=== PATIENT | male | born 1945 | race Caucasian/White ===

== ENCOUNTER 2019-03-03 18:09 | Inpatient (IN) | payer MEDICARE ==
[2019-03-03 19:32] LABS: Basophils % (A) 1 %; Eosinophils # (A) 0.1 k/uL (0-0.7); Eosinophils % (A) 2 %; HCT 46.1 % (39.0-53.0); HGB 15.3 gm/dL (13.0-17.5); Lymphocytes # (A) 2.3 k/uL (1.0-4.8); Lymphocytes % (A) 32 %; MCH 31.4 pg (25.0-35.0); MCHC 33.3 g/dL (31.0-37.0); MCV 94.3 fL (80.0-100.0); Mean Platelet Volume 14.1; Monocytes # (A) 0.4 k/uL (0-1.0); Monocytes % (A) 6 %; Neutrophils # (A) 4.2 k/uL (1.3-7.7); Neutrophils % (A) 57 %; RBC 4.89 m/uL (4.30-5.90); RDW 14.3 % (11.5-15.5); WBC 7.4 k/uL (3.8-10.6)
[2019-03-03 19:39] LABS: Calcium 9.3 mg/dL (8.4-10.2); Potassium 4.3 mmol/L (3.5-5.1)
[2019-03-03 19:40] LABS: INR 0.9 (<1.2); Partial Thromboplastin Time 22.3 sec (22.0-30.0); Prothrombin Time 9.7 sec (9.0-12.0)
[2019-03-03 20:08] LABS: Platelet Count 10 k/uL (150-450)
[2019-03-03] MEDS ORDERED: DEXAMETHASONE 4 MG TAB PO ONE (21:06)
[2019-03-03] MEDS ORDERED: NALOXONE 0.4 MG/ML 1 ML VIAL IV PRN (21:08)
--- NOTE | 2019-03-03 21:08 | ED ---
General Adult HPI - General Chief complaint: Recheck/Abnormal Lab/Rx Stated complaint: abnormal labs Time Seen by Provider: 03/03/19 18:25 Source: patient, family Mode of arrival: ambulatory Limitations: no limitations - History of Present Illness Initial comments: The patient is a 73-year-old male who presents to the emergency department with complaint of abnormal labs. The patient had laboratory studies drawn drawn prior to a scheduled nephrology appointment. It consisted of routine blood work. The patient admits that he was at home today when he got a call stating that he had an abnormal platelet count and that he had to present to the emerg ency department for further evaluation. He denies a history of previous platelet disorder. He denies any abnormal bruising or bleeding. He has required transfusion of packed red blood cells when he had an episode of acute renal failure. States that his renal failure episodes are tied to ALLERGIC reactions. States he has had to receive dialysis before temporarily however his kidney function has essentially normalized at this point. He denies a history of anemia. No recent blood loss. He does admit he has been taking aspirin lately he has a recent dental procedure. He did take aspirin 4 times in one day and twice the following day. He denies any additional symptoms to include headaches, chest pain, shortness of breath, abdominal pain. No hemoptysis, hematemesis, melanotic stools or hematochezia. He does have bruising noted to the dorsal aspects of his hands which has been present for over a week. There are no alleviating, precipitating or modifying factors - Related Data Home Medications Medication Instructions Recorded Confirmed Latanoprost 1 drop BOTH EYES HS 04/01/14 03/03/19 Aspirin 81 mg PO HS 06/01/16 03/03/19 Brimonidine Tartrate [Alphagan P 1 drops BOTH EYES BID 06/01/16 03/03/19 0.15% Ophth Soln] Ferrous Sulfate [Iron (65 MG 325 mg PO BID 06/01/16 03/03/19 Elemental)] Ergocalciferol (Vitamin D2) 50,000 unit PO Q28D 03/03/19 03/03/19 [Drisdol] Furosemide [Lasix] 20 mg PO BID 03/03/19 03/03/19 Potassium Chloride ER [K-Dur 20] 20 meq PO DAILY 03/03/19 03/03/19 predniSONE 5 mg PO DAILY 03/03/19 03/03/19 Previous Rx's Medication Instructions Recorded Famotidine [Pepcid] 20 mg PO DAILY #30 tab 06/14/16 Allergies Allergy/AdvReac Type Severity Reaction Status Date / Time ARTIFICIAL POPCORN BUTTER Allergy Severe Dyspnea Uncoded 03/03/19 19:31 Sb [place] Popcorn Allergy Severe Dyspnea Uncoded 06/01/16 07:49 Butter Review of Systems ROS Statement: Those systems with pertinent positive or pertinent negative responses have been documented in the HPI. ROS Other: All systems not noted in ROS Statement are negative. Past Medical History Past Medical History: CVA/TIA, Dialysis, Eye Disorder, Hyperlipidemia, Hypertension, Osteoarthritis (OA), Pneumonia, Renal Disease Additional Past Medical History / Comment(s): Pt states he was in [place] 05/23/16 and petted a fish in an aquarium and immediately started with R hand swelling then L hand swelling and then more generalized edema. Other past hs: Dialysis in March 2014- hospitalized for swelling in legs and low urine output- acute kidney injury r/t allery per pt, TIA 2013, pt states he is not HTN- medication is protect kidneys, bilateral glaucoma, migraines in past, slight numbness L foot, OA low back and bilateral knees, bone spurs low back, sinus problems, scarlet fever at age 2yrs. History of Any Multi-Drug Resistant Organisms: None Reported Past Surgical History: Heart Catheterization, Hernia Repair Additional Past Surgical History / Comment(s): Dialysis catheters x3- groin twice then chest-removed April 2014. Kidney biopsy April 2014-neg. Kidney biopsy 06/30/14 for followup-neg. 1997 cardiac cath-clear, 1973 L inguinal hernia repair. Past Anesthesia/Blood Transfusion Reactions: No Reported Reaction Additional Past Anesthesia/Blood Transfusion Reaction / Comment(s): Pt staes he has received blood in past without reaction Past Psychological History: No Psychological Hx Reported Smoking Status: Never smoker Past Alcohol Use History: Rare Past Drug Use History: None Reported - Past Family History Mother Family Medical History: No Reported History Additional Family Medical History / Comment(s): Mother was healthy-she at age 92 1/2. Father Family Medical History: Renal Disease General Exam Limitations: no limitations General appearance: alert, in no apparent distress Head exam: Present: atraumatic, normocephalic, normal inspection Eye exam: Present: normal appearance, PERRL, EOMI. Absent: scleral icterus, conjunctival injection, periorbital swelling ENT exam: Present: normal exam, mucous membranes moist Neck exam: Present: normal inspection. Absent: tenderness, meningismus, lymphadenopathy Respiratory exam: Present: normal lung sounds bilaterally. Absent: respiratory distress, wheezes, rales, rhonchi, stridor Cardiovascular Exam: Present: regular rate, normal rhythm, normal heart sounds. Absent: systolic murmur, diastolic murmur, rubs, gallop, clicks GI/Abdominal exam: Present: soft, normal bowel sounds. Absent: distended, tenderness, guarding, rebound, rigid Extremities exam: Present: normal inspection, full ROM, normal capillary refill. Absent: tenderness, pedal edema, joint swelling, calf tenderness Back exam: Present: normal inspection Neurological exam: Present: alert, oriented X3, CN II-XII intact Psychiatric exam: Present: normal affect, normal mood Skin exam: Present: warm, dry, intact, normal color, other (The patient does have ecchymosis noted to his bilateral dorsal hands). Absent: rash Course Vital Signs 03/03/19 03/03/19 03/03/19 18:14 22:03 22:37 Temperature 97.9 F 97.9 F 97.9 F Pulse Rate 79 58 L 69 Respiratory 18 16 16 Rate Blood Pressure 165/101 155/70 147/90 O2 Sat by Pulse 97 97 97 Oximetry Medical Decision Making - Medical Decision Making The patient was placed into room 1. I did repeat his laboratory studies. The patient does have a platelet count of 10. He has no active bleeding at this time. Because of this I did recommend treatment with Decadron. He was given 40 mg of Decadron by mouth. I did call and discuss the case with Dr. Carbone. He did accept admission for the patient for further monitoring and further evaluation of his isolated thrombocytopenia. Bridging orders were placed. The patient remained in stable condition and was transported to the floor - Differential Diagnosis ITP, TTP, acute thrombocytopenia - Lab Data Result diagrams: 03/03/19 19:15 03/03/19 19:15 Lab Results 03/03/19 03/03/19 03/03/19 Range/Units 19:15 19:15 19:15 WBC 7.4 (3.8-10.6) k/uL RBC 4.89 (4.30-5.90) m/uL Hgb 15.3 (13.0-17.5) gm/dL Hct 46.1 (39.0-53.0) % MCV 94.3 (80.0-100.0) fL MCH 31.4 (25.0-35.0) pg MCHC 33.3 (31.0-37.0) g/dL RDW 14.3 (11.5-15.5) % Plt Count 10 L* (150-450) k/uL Neutrophils % 57 % Lymphocytes % 32 % Monocytes % 6 % Eosinophils % 2 % Basophils % 1 % Neutrophils # 4.2 (1.3-7.7) k/uL Lymphocytes # 2.3 (1.0-4.8) k/uL Monocytes # 0.4 (0-1.0) k/uL Eosinophils # 0.1 (0-0.7) k/uL Basophils # 0.0 (0-0.2) k/uL Manual Slide Review Performed RBC Morphology Normal PT 9.7 (9.0-12.0) sec INR 0.9 (<1.2) APTT 22.3 (22.0-30.0) sec Sodium 139 (137-145) mmol/L Potassium 4.3 (3.5-5.1) mmol/L Chloride 104 (98-107) mmol/L Carbon Dioxide 27 (22-30) mmol/L Anion Gap 8 mmol/L BUN 17 (9-20) mg/dL Creatinine 1.02 (0.66-1.25) mg/dL Est GFR (CKD-EPI)AfAm 83 (>60 ml/min/1.73 sqM) Est GFR (CKD-EPI)NonAf 72 (>60 ml/min/1.73 sqM) Glucose 151 H (74-99) mg/dL Calcium 9.3 (8.4-10.2) mg/dL Disposition Clinical Impression: Thrombocytopenia Disposition: ADMITTED IP TO THIS [facility] Condition: Stable Is patient prescribed a controlled substance at d/c from ED?: No Decision to Admit Reason: Admit from EC Decision Date: 03/03/19 Decision Time: 21:08
[2019-03-03 23:00] VITALS: BMI 29.0
--- NOTE | 2019-03-03 23:46 | P.HPIM ---
History of Present Illness H&P Date: 03/03/19 Chief Complaint: abnormal lab, thrombocytopenia 73 year old male with CKD III Patient is at baseline status of health, he had some blood work done last week received results today his doctor told him that his platelet count was 10,009 that was critical for which he recommended that he goes to the hospital. Patient denies any active source of bleeding he reports chronic easy bruisability. Denies any recent falls. He reports recently had some deep scaling and dental cleaning for which she was taking extra doses of aspirin as he was trying to avoid any other NSAIDs due to history of chronic kidney disease which is overall improving. He noticed some gum bleeding due to the procedure. Otherwise denies any nosebleeds denies any other active bleeds. Patient denies any chest pain or trouble breathing denies any fevers or chills denies any GI bleeding.patient denies any recent viral prodrome or respiratory illness. In the ED labs were confirmed repeat testing showed low count of 10,000 platelets. 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 Chronic maintenance low-dose prednisone for his chronic kidney disease. He is on Lasix and potassium and Pepcid. Review of Systems Pertinent positives as noted in HPI. All other systems were reviewed and are negative Past Medical History Past Medical History: CVA/TIA, Dialysis, Eye Disorder, Hyperlipidemia, Hypertension, Osteoarthritis (OA), Pneumonia, Renal Disease Additional Past Medical History / Comment(s): Pt states he was in [place] 05/23/16 and petted a fish in an aquarium and immediately started with R hand swelling then L hand swelling and then more generalized edema. Other past hs: Dialysis in March 2014- hospitalized for swelling in legs and low urine output- acute kidney injury r/t allery per pt, TIA 2013, pt states he is not HTN-m edication is protect kidneys, bilateral glaucoma, migraines in past, slight numbness L foot, OA low back and bilateral knees, bone spurs low back, sinus problems, scarlet fever at age 2yrs. History of Any Multi-Drug Resistant Organisms: None Reported Past Surgical History: Heart Catheterization, Hernia Repair Additional Past Surgical History / Comment(s): Dialysis catheters x3- groin twice then chest-removed April 2014. Kidney biopsy April 2014-neg. Kidney biopsy 06/30/14 for followup-neg. 1998 cardiac cath-clear, 1973 L inguinal hernia repair. Past Anesthesia/Blood Transfusion Reactions: No Reported Reaction Additional Past Anesthesia/Blood Transfusion Reaction / Comment(s): Pt staes he has received blood in past without reaction Past Psychological History: No Psychological Hx Reported Additional Psychological History / Comment(s): Pt resides with his spouse. He uses no assistive device. He drives. He is active. Smoking Status: Never smoker Past Alcohol Use History: Rare Past Drug Use History: None Reported - Past Family History Mother Family Medical History: No Reported History Additional Family Medical History / Comment(s): Mother was healthy-she at age 92 1. Father Family Medical History: Renal Disease Medications and Allergies Home Medications Medication Instructions Recorded Confirmed Type Latanoprost 1 drop BOTH EYES HS 04/01/14 03/03/19 History Aspirin 81 mg PO HS 06/01/16 03/03/19 History Brimonidine Tartrate [Alphagan P 1 drops BOTH EYES BID 06/01/16 03/03/19 History 0.15% Ophth Soln] Ferrous Sulfate [Iron (65 MG 325 mg PO BID 06/01/16 03/03/19 History Elemental)] Famotidine [Pepcid] 20 mg PO DAILY #30 tab 06/14/16 03/03/19 Rx Ergocalciferol (Vitamin D2) 50,000 unit PO Q28D 03/03/19 03/03/19 History [Drisdol] Furosemide [Lasix] 20 mg PO BID 03/03/19 03/03/19 History Potassium Chloride ER [K-Dur 20] 20 meq PO DAILY 03/03/19 03/03/19 History predniSONE 5 mg PO DAILY 03/03/19 03/03/19 History Allergies Allergy/AdvReac Type Severity Reaction Status Date / Time ARTIFICIAL POPCORN BUTTER Allergy Severe Dyspnea Uncoded 03/03/19 19:31 Sb [place] Popcorn Allergy Severe Dyspnea Uncoded 06/01/16 07:49 Butter Physical Exam Vitals: Vital Signs Temp Pulse Resp BP Pulse Ox 03/03/19 22:37 97.9 F 69 16 147/90 97 03/03/19 22:03 97.9 F 58 L 16 155/70 97 03/03/19 18:14 97.9 F 79 18 165/101 97 Intake and Output 03/03/19 03/03/19 03/04/19 14:59 22:59 06:59 Other: Weight 99.79 kg Constitutional: No acute distress, conversant, pleasant Eyes: Anicteric sclerae, moist conjunctiva, no lid-lag Pupils equal round reactive to light ENMT: NC/AT Oropharynx clear, no erythema, exudates Neck: Supple, FROM, no masses, or JVD No carotid bruits No thyromegaly Lungs: Clear to auscultation Clear to percussion Normal respiratory effort, no accessory muscle use Cardiovascular: Heart regular in rate and rhythm, No murmurs, gallops, or rubs peripheral edema right leg more than left Abdominal: Soft Nontender, no guarding, rebound or rigidity Abdomen moving with respiration Normoactive bowel sounds No hepatomegaly, No splenomegaly No palpable mass No abdominal wall hernia noted Skin: bruising of bilateral dorsum of the hand,, No swelling no tenderness Normal temperature, tone, texture, turgor No induration No subcutaneous nodules No rash, lesions No ulcers Extremities: No digital cyanosis No clubbing Pedal pulses intact and symmetrical Radial pulses intact and symmetrical No calf tenderness Psychiatric: Alert and oriented to person, place and time Appropriate affect fair judgment Neuro Muscles Strength 5/5 in all 4 extremities Sensation to light touch grossly present throughout Cranial nerves II-XII grossly intact No focal sensory deficits Lymphatics: no palpable cervical or supraclavicular , or inguinal lymph nodes Results CBC & Chem 7: 03/03/19 19:15 03/03/19 19:15 Labs: Abnormal Lab Results - Last 24 Hours (Table) 03/03/19 03/03/19 Range/Units 19:15 19:15 Plt Count 10 L* (150-450) k/uL Glucose 151 H (74-99) mg/dL Thrombosis Risk Factor Assmnt - Choose All That Apply Any of the Below Risk Factors Present?: Yes Each Factor Represents 1 point: Obesity (BMI >25) Each Risk Factor Represents 3 Points: Age 75 years or older Thrombosis Risk Factor Assessment Total Risk Factor Score: 4 Thrombosis Risk Factor Assessment Level: Moderate Risk Assessment and Plan Assessment: 73-year-old male with history of COPD stage III.admitted under observation with anticipated length of stay less than 48 hours due to severe thrombocytopenia with no evidence of bleeding. patient denies any active bleeding or recent history of bleeding, except for slight bleeding during a dental procedure for deep scaling recently. Patient was given high-dose Decadron, hematology was consult for their input. Plan: severe thrombocytopenia, no associated bleeding possible ITP, patient will be given short course of high dose decadron PO 40 mg daily for 4 days monitor for any signs of bleeding hematology consult r/o hepatitis r/o HIV check abd US for hypersplenism , no palpable spleen on exam insulin sliding scale due to high dose steroids PT/PTT / INR , unremarkable chronic condition currently stable CKD III DVT PPX SCDs, due to severe thrombocytopenia Surrogate decision-maker: patient CODE STATUS:full code Discussed with: Patient, ER, RN Anticipated discharge: <[address]: home A total of 65 minutes was spent on the care of this complex patient more than 50% of the time was spent in counseling and care coordination.
[2019-03-04 07:30] LABS: Glucose,Whole Blood 237 mg/dL (75-99)
[2019-03-04] MEDS: INSULIN ASPART (NovoLOG) 100 UNIT/ML VIAL SQ SCH ×4 (07:39→21:22)
[2019-03-04] MEDS: POTASSIUM CHLORIDE ER 20 MEQ TAB.ER PO SCH (07:40)
[2019-03-04] MEDS: FUROSEMIDE 20 MG TAB PO SCH ×2 (07:40→20:12)
[2019-03-04] MEDS: FAMOTIDINE 20 MG TAB PO SCH (07:40)
[2019-03-04] MEDS: BRIMONIDINE TARTRATE 0.2% DROPS 5 ML BTL BOTH EYES SCH ×2 (07:40→20:12)
--- NOTE | 2019-03-04 08:11 | US ---
EXAMINATION TYPE: US abdomen limited DATE OF EXAM: 03/04/2019 COMPARISON: CLINICAL HISTORY: r/o hypersplenism. Patient states having extremely low platelets EXAM MEASUREMENTS: Spleen: 11.9 cm Left Kidney: 11.6 x 4.6 x 5.5 cm 1. Spleen: echogenic focus with shadow seen at hilum - 1.2 cm 2. Left Kidney: wnl IMPRESSION: No evidence for splenomegaly. Echogenic focus seen at the devi may reflect a granuloma.
[2019-03-04] MEDS ORDERED: DEXAMETHASONE 4 MG TAB PO SCH (09:00)
[2019-03-04 10:07] LABS: Basophils % (A) 0 %; Eosinophils % (A) 0 %; HCT 47.7 % (39.0-53.0); HGB 15.4 gm/dL (13.0-17.5); Lymphocytes # (A) 1.1 k/uL (1.0-4.8); Lymphocytes % (A) 14 %; MCH 31.2 pg (25.0-35.0); MCHC 32.3 g/dL (31.0-37.0); MCV 96.5 fL (80.0-100.0); Mean Platelet Volume 11.5; Monocytes # (A) 0.2 k/uL (0-1.0); Monocytes % (A) 2 %; Neutrophils # (A) 6.6 k/uL (1.3-7.7); Neutrophils % (A) 83 %; RBC 4.94 m/uL (4.30-5.90); RDW 13.4 % (11.5-15.5)
[2019-03-04 10:12] LABS: Platelet Count 13 k/uL (150-450)
[2019-03-04 10:26] LABS: Albumin 4.5 g/dL (3.5-5.0); Calcium 9.6 mg/dL (8.4-10.2); Potassium 4.5 mmol/L (3.5-5.1); Total Bilirubin 0.6 mg/dL (0.2-1.3); Total Protein 7.3 g/dL (6.3-8.2)
[2019-03-04 11:11] LABS: Large Platelets Present
[2019-03-04 12:07] LABS: Glucose,Whole Blood 272 mg/dL (75-99)
[2019-03-04] MEDS: methylPREDNISolone SOD SUCCI 125 MG/2 ML VIAL IV SCH ×3 (12:35→23:40)
--- NOTE | 2019-03-04 15:53 | P.PN ---
Subjective Progress Note Date: 03/04/19 Principal diagnosis: thrombocytopenia Patient is a 73-year-old male of Dr. boogie who presented to the ER at the direction of Dr. Cross secondary to thrombocytopenia. He has a history of chronic kidney disease stage III and follows with Dr. Isabel, prior CVA, dyslipidemia, and hypertension. In the ER he underwent an extensive evaluation was found have platelet count of 10. He was subsequently admitted for further monitoring and started on steroids. Oncology/hematology has been consulted. Patient seen and examined at bedside. He reports that he had a rash starting on both of his legs approximately 3 weeks ago. He states the rash was worse and is now getting better. He denies any bleeding in his urine, bleeding in his stool, or coughing up blood. He was having significant bleeding from his gum line. 2 weeks ago he started having dental work done as he was waking up with blood on his pillowcase. He has chronic headaches but has not had any changes in his headaches. He has not had any focal neuro deficits. Objective - Vital Signs Vital signs: Vital Signs Temp 98.4 F 03/04/19 13:36 Pulse 103 H 03/04/19 13:36 Resp 20 03/04/19 13:36 BP 127/74 03/04/19 13:36 Pulse Ox 93 L 03/04/19 13:36 Intake & Output 03/03/19 03/04/19 03/04/19 18:59 06:59 18:59 Intake Total 600 Balance 600 Weight 99.79 kg Intake: Oral 600 Other: # Voids 2 4 - Exam General: non toxic, no distress, appears at stated age Derm: Petechiae bilateral lower extremity, chest and abdomen, and back, no bleeding noted, ecchymoses bilateral hands warm, dry Head: atraumatic, normocephalic, symmetric Eyes: EOMI, no lid lag, anicteric sclera Mouth: no lip lesion, mucus membranes moist Cardiovascular: S1S2 reg, no murmur, positive posterior tibial pulse bilateral, Lungs: CTA bilateral, no rhonchi, no rales , no accessory muscle use Abdominal: soft, nontender to palpation, no guarding, no appreciable organomegaly Ext: no gross muscle atrophy, no edema, no contractures Neuro: CN II-XI grossly intact, no focal neuro deficits Psych: Alert, oriented, appropriate affect - Labs CBC & Chem 7: 03/04/19 09:24 03/04/19 09:24 Labs: Abnormal Lab Results - Last 24 Hours (Table) 03/03/19 03/03/19 03/04/19 Range/Units 19:15 19:15 07:02 Plt Count 10 L* (150-450) k/uL Carbon Dioxide (22-30) mmol/L BUN (9-20) mg/dL Glucose 151 H (74-99) mg/dL POC Glucose (mg/dL) 237 H (75-99) mg/dL 03/04/19 03/04/19 03/04/19 Range/Units 09:24 09:24 11:52 Plt Count 13 L* (150-450) k/uL Carbon Dioxide 20 L (22-30) mmol/L BUN 21 H (9-20) mg/dL Glucose 306 H (74-99) mg/dL POC Glucose (mg/dL) 272 H (75-99) mg/dL Assessment and Plan Assessment: Severe thrombocytopenia -Solu-Medrol -Patient is chronically on prednisone secondary to renal issues -Oncology recommendations appreciated -Work at this pending with MAIN, folate, vitamin B12, [place] and lambda, hepatitis serologies, HIV serologies, immunofixation, MMA, serum protein electr ophoresis, and rheumatoid factor. CKD stage II -Follow renal function closely -Follows with Dr. Isabel as outpatient -History of needing acute dialysis 2 Hyperglycemia -Likely secondary to steroid use -Check A1c -Sliding-scale insulin -Start Levemir 5 units Hypertension, controlled -Continue with Lasix -Follow blood pressures Dyslipidemia -Not chronically on any medications -Follow up with outpatient DVT prophylaxis: None Discussed with: Patient, spouse, oncology COMMUNITY OUTREACH COORDINATOR Anticipated discharge: 3-4 days once plt near [address]: home A total of 35 minutes was spent on the care of this complex patient more than 50% of the time was spent in counseling and care coordination.
[2019-03-04] MEDS: PANTOPRAZOLE 40 MG TABLET PO SCH (16:57)
[2019-03-04 17:13] LABS: Glucose,Whole Blood 284 mg/dL (75-99)
[2019-03-04 17:13] LABS: Hepatitis A Antibody IgM Non-Reactive (Non-Reactive); Hepatitis B Surface AB- Quant 3.5 mIU/mL; Hepatitis C IgG Antibody Non-Reactive (Non-Reactive)
[2019-03-04 18:16] LABS: HIV 1 AB Non-Reactive (Non-Reactive); HIV AB P24 Non-Reactive (Non-Reactive); HIV P24 AG Non-Reactive (Non-Reactive)
[2019-03-04] MEDS: LATANOPROST 0.005% OPHTH DROPS 2.5 ML BTL BOTH EYES SCH (20:12)
[2019-03-04 20:43] LABS: Glucose,Whole Blood 271 mg/dL (75-99)
--- NOTE | 2019-03-04 22:17 | P.CONS ---
History of Present Illness - Reason for Consult Consult date: 03/04/19 Thrombocytopenia Requesting physician: Gonzalez Dimas - Chief Complaint Low Platlet Count - History of Present Illness Mr. Donahue is a pleasant 73 year old man who has been relatively healthy over the years. Significant past medical history includes 2013 in which he required temporary hemodialysis following an allergic reaction to something he ate. After initiation of steroids his renal was able to recovery and able to be taken off diaylsis. In 2015, he was visiting an aquarium and had stuck his hand in a fish tank, which resulted in immediate inflammatory reaction, again requiring hemodiaylsis and inpatient medical care. Steroids initated at that time as well and his renal function was able to recover to a level at which dialysis was able to be discontinued. Today he presented after seeing his PCP and having regular bloodwork. His PCP called to inform him of his platlet count 10K, subsequently his cosmetic consultant also called him and advised him to go into emergency for further evaluation. The past few weeks leading up to this admission he had undergone dental procedures, invasive. No antibiotics were given. He did admit to gum bleeding significant during this procedure. He had noticed bruising on extremities and petechaie rash on BLE. On admission Steroids were iniatiated and hematology has been consulted for further evaluation. An Ultrasound of the ab domen did not show splenomegaly. He denies weight loss, night sweats, fevers or chills. No other B symptoms. Review of Systems A 14 point review of systems assessed and completed and all negative except HPI Past Medical History Past Medical History: CVA/TIA, Dialysis, Eye Disorder, Hyperlipidemia, Hypertension, Osteoarthritis (OA), Pneumonia, Renal Disease Additional Past Medical History / Comment(s): Pt states he was in [place] 05/23/16 and petted a fish in an aquarium and immediately started with R hand swelling then L hand swelling and then more generalized edema. Other past hs: Dialysis in March 2014- hospitalized for swelling in legs and low urine output- acute kidney injury r/t allery per pt, TIA 2013, pt states he is not HTN- medication is protect kidneys, bilateral glaucoma, migraines in past, slight numbness L foot, OA low back and bilateral knees, bone spurs low back, sinus problems, scarlet fever at age 2yrs. History of Any Multi-Drug Resistant Organisms: None Reported Past Surgical History: Heart Catheterization, Hernia Repair Additional Past Surgical History / Comment(s): Dialysis catheters x3- groin twice then chest-removed April 2014. Kidney biopsy April 2014-neg. Kidney biopsy 06/30/14 for followup-neg. 1997 cardiac cath-clear, 1973 L inguinal hernia repair. Past Anesthesia/Blood Transfusion Reactions: No Reported Reaction Additional Past Anesthesia/Blood Transfusion Reaction / Comm: Pt staes he has received blood in past without reaction Past Psychological History: No Psychological Hx Reported Smoking Status: Never smoker Past Alcohol Use History: Rare Past Drug Use History: None Reported - Past Family History Mother Family Medical History: No Reported History Additional Family Medical History / Comment(s): Mother was healthy-she at age 92 12. Father Family Medical History: Renal Disease Medications and Allergies Home Medications Medication Instructions Recorded Confirmed Type Latanoprost 1 drop BOTH EYES HS 04/01/14 03/03/19 History Aspirin 81 mg PO HS 06/01/16 03/03/19 History Brimonidine Tartrate [Alphagan P 1 drops BOTH EYES BID 06/01/16 03/03/19 History 0.15% Ophth Soln] Ferrous Sulfate [Iron (65 MG 325 mg PO BID 06/01/16 03/03/19 History Elemental)] Famotidine [Pepcid] 20 mg PO DAILY #30 tab 06/14/16 03/03/19 Rx Ergocalciferol (Vitamin D2) 50,000 unit PO Q28D 03/03/19 03/03/19 History [Drisdol] Furosemide [Lasix] 20 mg PO BID 03/03/19 03/03/19 History Potassium Chloride ER [K-Dur 20] 20 meq PO DAILY 03/03/19 03/03/19 History predniSONE 5 mg PO DAILY 03/03/19 03/03/19 History Allergies Allergy/AdvReac Type Severity Reaction Status Date / Time ARTIFICIAL POPCORN BUTTER Allergy Severe Dyspnea Uncoded 03/03/19 19:31 Sb Redenbacher Popcorn Allergy Severe Dyspnea Uncoded 06/01/16 07:49 Butter Physical Exam Vitals: Vital Signs Temp Pulse Pulse Resp BP BP Pulse Ox 03/04/19 21:07 97.9 F 87 18 136/76 93 L 03/04/19 13:36 98.4 F 103 H 20 127/74 93 L 03/04/19 11:21 96 135/70 03/04/19 04:50 97.9 F 78 16 168/92 94 L 03/03/19 23:30 98.1 F 72 16 151/83 95 03/03/19 22:37 97.9 F 69 16 147/90 97 03/03/19 22:03 97.9 F 58 L 16 155/70 97 Intake and Output 03/04/19 03/04/19 03/04/19 06:59 14:59 22:59 Intake Total 600 540 Balance 600 540 Intake: Oral 600 540 Other: # Voids 2 4 2 Gen: NAD, Head: NCNT Neck: Supple No cervical, supraclavicular, axillary adenopathy Lungs: CTA [place], no increased effort Heart: Rrr Abdomen: Obese, Soft, Non-Tender Extremities: Areas of ecyymosis and BLE PEtechaie noted Neuro: No sensory ot motor deficits Results CBC & Chem 7: 03/04/19 09:24 03/04/19 09:24 Labs: Abnormal Lab Results - Last 24 Hours (Table) 03/04/19 03/04/19 03/04/19 Range/Units 07:02 09:24 09:24 Plt Count 13 L* (150-450) k/uL Carbon Dioxide 20 L (22-30) mmol/L BUN 21 H (9-20) mg/dL Glucose 306 H (74-99) mg/dL POC Glucose (mg/dL) 237 H (75-99) mg/dL 03/04/19 03/04/19 03/04/19 Range/Units 11:52 16:44 20:38 Plt Count (150-450) k/uL Carbon Dioxide (22-30) mmol/L BUN (9-20) mg/dL Glucose (74-99) mg/dL POC Glucose (mg/dL) 272 H 284 H 271 H (75-99) mg/dL Venous US: report reviewed Assessment and Plan (1) Thrombocytopenia Current Visit: Yes Status: Acute Code(s): D69.6 - THROMBOCYTOPENIA, UNSPECI FIED SNOMED Code(s): 591865263 Plan: Thrombocytopenia: - Solumedrol and PPI initiated and will continue with close monitoring of platlets - Case has been discussed with nephrology as it appears he has had immune related inflammatory reactions in the past, requiring dialysis, which were able to resolve with steroids anti-inflammatory effects. - A full work-up has been ordered at this time for underlying inflammatory etiology - Patient and have been educated on ITP diagnosis, risks of bleeding, goals of treatment, potential side effects of treatment and expectations. - Will await work-up and monitor labs, possible need for IVIG - await am CBC Physician Attest: I have completed the full history and physical of this patient and developed the above impression and plan, I agree with above dictation, dictated as a scribe.
[2019-03-05] MEDS: methylPREDNISolone SOD SUCCI 125 MG/2 ML VIAL IV SCH ×4 (05:07→23:21)
[2019-03-05 07:21] LABS: Glucose,Whole Blood 199 mg/dL (75-99)
[2019-03-05] MEDS: FAMOTIDINE 20 MG TAB PO SCH (07:33)
[2019-03-05] MEDS: FUROSEMIDE 20 MG TAB PO SCH ×2 (07:33→20:32)
[2019-03-05] MEDS: POTASSIUM CHLORIDE ER 20 MEQ TAB.ER PO SCH (07:33)
[2019-03-05] MEDS: PANTOPRAZOLE 40 MG TABLET PO SCH ×2 (07:33→16:57)
[2019-03-05] MEDS: INSULIN ASPART (NovoLOG) 100 UNIT/ML VIAL SQ SCH ×4 (07:33→20:53)
[2019-03-05] MEDS: BRIMONIDINE TARTRATE 0.2% DROPS 5 ML BTL BOTH EYES SCH ×2 (07:34→20:31)
[2019-03-05 08:29] LABS: HCT 42.6 % (39.0-53.0); HGB 14.2 gm/dL (13.0-17.5); MCH 31.5 pg (25.0-35.0); MCHC 33.3 g/dL (31.0-37.0); MCV 94.6 fL (80.0-100.0); Mean Platelet Volume 12.6; RDW 14.1 % (11.5-15.5); WBC 15.3 k/uL (3.8-10.6)
[2019-03-05 08:30] LABS: Platelet Count 13 k/uL (150-450)
[2019-03-05 08:40] LABS: Calcium 9.1 mg/dL (8.4-10.2); Potassium 4.3 mmol/L (3.5-5.1)
[2019-03-05 11:58] LABS: Glucose,Whole Blood 232 mg/dL (75-99)
--- NOTE | 2019-03-05 15:29 | P.PN ---
Subjective Progress Note Date: 03/05/19 Principal diagnosis: thrombocytopenia Patient is a 73-year-old male of Dr. boogie who presented to the ER at the direction of Dr. Cross secondary to thrombocytopenia. He has a history of chronic kidney disease stage III and follows with Dr. Isabel, prior CVA, dyslipidemia, and hypertension. In the ER he underwent an extensive evaluation was found have platelet count of 10. He was subsequently admitted for further monitoring and started on steroids. 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 Patient seen and examined at bedside. No chest pain, SOB, nausea, vomiting, thinks rash is getting better. at bedside and all questions answered. Objective - Vital Signs Vital signs: Vital Signs Temp 97.4 F L 03/05/19 12:27 Pulse 60 03/05/19 12:27 Resp 16 03/05/19 12:27 BP 126/72 03/05/19 12:27 Pulse Ox 93 L 03/05/19 12:27 Intake & Output 03/04/19 03/05/19 03/05/19 18:59 06:59 18:59 Intake Total 1140 540 Balance 1140 540 Intake: Oral 1140 540 Other: # Voids 2 1 1 # Bowel Movements 1 - Exam General: non toxic, no distress, appears at stated age Derm: Petechiae bilateral lower extremity, chest and abdomen, and back, no bleeding noted, ecchymoses bilateral hands, warm, dry Head: atraumatic, normocephalic, symmetric Eyes: EOMI, no lid lag, anicteric sclera Mouth: no lip lesion, mucus membranes moist Cardiovascular: S1S2 reg, no murmur, positive posterior tibial pulse bilateral, Lungs: CTA bilateral, no rhonchi, no rales , no accessory muscle use Abdominal: soft, nontender to palpation, no guarding, no appreciable organomegaly Ext: no gross muscle atrophy, no edema, no contractures Neuro: CN II-XI grossly intact, no focal neuro deficits Psych: Alert, oriented, appropriate affect - Labs CBC & Chem 7: 03/05/19 07:48 03/05/19 07:48 Labs: Abnormal Lab Results - Last 24 Hours (Table) 03/04/19 03/04/19 03/05/19 Range/Units 16:44 20:38 07:17 WBC (3.8-10.6) k/uL Plt Count (150-450) k/uL BUN (9-20) mg/dL Glucose (74-99) mg/dL POC Glucose (mg/dL) 284 H 271 H 199 H (75-99) mg/dL 03/05/19 03/05/19 03/05/19 Range/Units 07:48 07:48 11:54 WBC 15.3 H (3.8-10.6) k/uL Plt Count 13 L* (150-450) k/uL BUN 26 H (9-20) mg/dL Glucose 221 H (74-99) mg/dL POC Glucose (mg/dL) 232 H (75-99) mg/dL Assessment and Plan Assessment: Severe thrombocytopenia -Solu-Medrol -Patient is chronically on prednisone secondary to renal issues -Oncology recommendations appreciated -Work at this pending with MANI, folate, vitamin B12, [place] and lambda, immunofixation, MMA, serum protein electrophoresis, and rheumatoid factor. -Hepatitis and HIV serologies negative CKD stage II -Follow renal function closely -Follows with Dr. Isabel as outpatient -History of needing acute dialysis 2 Hyperglycemia -Likely secondary to steroid use -A1C pending -Sliding-scale insulin -Levemir 5 units Hypertension, controlled -Continue with Lasix -Follow blood pressures Dyslipidemia -Not chronically on any medications -Follow up with outpatient DVT prophylaxis: None Discussed with: Patient, spouse, oncology SIMPLEX OPERATOR Anticipated discharge: 3-4 days once plt near [address]: home A total of 25 minutes was spent on the care of this complex patient more than 50% of the time was spent in counseling and care coordination.
[2019-03-05] MEDS ORDERED: MELATONIN 5 MG TABLET PO PRN (16:24)
[2019-03-05] MEDS ORDERED: ALPRAZolam 0.25 MG TAB PO PRN (16:24)
[2019-03-05 16:54] LABS: Glucose,Whole Blood 216 mg/dL (75-99)
--- NOTE | 2019-03-05 17:18 | P.PN ---
Subjective Progress Note Date: 03/05/19 Principal diagnosis: Immune thrombocytopenic purpura In follow-up today patient was resting, he denies any side effects related to steroids, no bleeding to report, denies any recent ALLERGIC reactions. Objective - Vital Signs Vital signs: Vital Signs Temp 97.4 F L 03/05/19 12:27 Pulse 60 03/05/19 12:27 Resp 16 03/05/19 12:27 BP 126/72 03/05/19 12:27 Pulse Ox 93 L 03/05/19 12:27 Intake & Output 03/04/19 03/05/19 03/05/19 18:59 06:59 18:59 Intake Total 1140 540 Balance 1140 540 Intake: Oral 1140 540 Other: # Voids 2 1 1 # Bowel Movements 1 - Constitutional Constitutional Comment(s): Flushed complexion, General appearance: Present: average body habitus, cooperative, no acute distress - EENT Eyes: Present: anicteric sclerae, EOMI ENT: Present: hearing grossly normal, normal oropharynx - Respiratory Respiratory: bilateral: CTA - Cardiovascular Rhythm: regular Heart sounds: normal: S1, S2 Abnormal Heart Sounds: Absent: systolic murmur, diastolic murmur, rub, S3 Gallop, S4 Gallop, click, other - Peripheral edema leg Peripheral Edema: bilateral: None - Gastrointestinal General gastrointestinal: Present: normal bowel sounds, soft - Integumentary Integumentary: Present: flushed - Neurologic Neurologic: Present: CNII-XII intact - Musculoskeletal Musculoskeletal: Present: strength equal bilaterally - Psychiatric Psychiatric: Present: A&O x's 3, appropriate affect, intact judgment & insight - Labs CBC & Chem 7: 03/05/19 07:48 03/05/19 07:48 Labs: Abnormal Lab Results - Last 24 Hours (Table) 03/04/19 03/04/19 03/05/19 Range/Units 16:44 20:38 07:17 WBC (3.8-10.6) k/uL Plt Count (150-450) k/uL BUN (9-20) mg/dL Glucose (74-99) mg/dL POC Glucose (mg/dL) 284 H 271 H 199 H (75-99) mg/dL 03/05/19 03/05/19 03/05/19 Range/Units 07:48 07:48 11:54 WBC 15.3 H (3.8-10.6) k/uL Plt Count 13 L* (150-450) k/uL BUN 26 H (9-20) mg/dL Glucose 221 H (74-99) mg/dL POC Glucose (mg/dL) 232 H (75-99) mg/dL 03/05/19 Range/Units 16:50 WBC (3.8-10.6) k/uL Plt Count (150-450) k/uL BUN (9-20) mg/dL Glucose (74-99) mg/dL POC Glucose (mg/dL) 216 H (75-99) mg/dL Assessment and Plan (1) Acute ITP Narrative/Plan: Patient has been started on intravenous steroids. His platelet count is 13,000 today. No evidence of bleeding, hemoglobin is stable. We reviewed diagnosis of immune-related thrombocytopenic purpura, also, reviewed treatment options. Steroids is the initial treatment choice but, patient developed ITP while on a low-dose of steroids. This is concerning for steroid taper in the future. At this time the plan is for the high-dose steroids as prescribed, with a taper. Plan is for patient to follow-up with Dr. Lewis in the outpatient setting and discuss treatment options so that they can be initiated prior to completion of a steroid taper. Patient verbalized understanding. Did confirm [facility] in [place] for patient's prescriptions. Autoimmune workup is pending. Will follow with patient in the a.m. CBC daily. No anticoagulants, aspirin, NSAIDs Current Visit: Yes Status: Acute Priority: High Code(s): D69.3 - IMMUNE THROMBOCYTOPENIC PURPURA SNOMED Code(s): 54424255
[2019-03-05 17:23] LABS: Protein, Total 5.9 g/dL (6.2-8.2); Rheumatoid Factor 7 IU/mL (0-15)
[2019-03-05 20:23] LABS: Glucose,Whole Blood 342 mg/dL (75-99)
[2019-03-05] MEDS: LATANOPROST 0.005% OPHTH DROPS 2.5 ML BTL BOTH EYES SCH (20:32)
[2019-03-05] MEDS ORDERED: INSULIN DETEMIR (LEVEMIR) 100 UNIT/ML SYR SQ SCH (21:00)
[2019-03-06] MEDS: methylPREDNISolone SOD SUCCI 125 MG/2 ML VIAL IV SCH ×4 (05:33→23:03)
[2019-03-06 07:12] LABS: Glucose,Whole Blood 254 mg/dL (75-99)
[2019-03-06] MEDS: FUROSEMIDE 20 MG TAB PO SCH ×2 (07:15→20:09)
[2019-03-06] MEDS: INSULIN ASPART (NovoLOG) 100 UNIT/ML VIAL SQ SCH ×4 (07:15→21:12)
[2019-03-06] MEDS: POTASSIUM CHLORIDE ER 20 MEQ TAB.ER PO SCH (07:15)
[2019-03-06] MEDS: PANTOPRAZOLE 40 MG TABLET PO SCH ×2 (07:15→17:12)
[2019-03-06] MEDS: FAMOTIDINE 20 MG TAB PO SCH (07:15)
[2019-03-06] MEDS: BRIMONIDINE TARTRATE 0.2% DROPS 5 ML BTL BOTH EYES SCH ×2 (07:16→20:09)
[2019-03-06 08:16] LABS: HCT 41.5 % (39.0-53.0); HGB 13.8 gm/dL (13.0-17.5); MCH 31.8 pg (25.0-35.0); MCHC 33.3 g/dL (31.0-37.0); MCV 95.7 fL (80.0-100.0); Mean Platelet Volume 12.4; RBC 4.34 m/uL (4.30-5.90); RDW 14.5 % (11.5-15.5); WBC 15.3 k/uL (3.8-10.6)
[2019-03-06 08:24] LABS: Platelet Count 9 k/uL (150-450)
[2019-03-06] MEDS ORDERED: IMMUNE GLOBULIN (GAMMAGARD) 1 GM/10 ML VIAL IV SCH (09:00)
[2019-03-06] MEDS ORDERED: IMMUNE GLOBULIN (GAMMAGARD) 10 GM in EMPTY BAG 1 BAG IV ONE ×4 (10:00→16:00)
[2019-03-06 11:48] LABS: Glucose,Whole Blood 262 mg/dL (75-99)
--- NOTE | 2019-03-06 14:41 | P.PN ---
Subjective Progress Note Date: 03/06/19 Patient was seen and examined at the bedside. He was in good spirits and denied any active complaints. He denied chest pain, fever, chills, or cough. He further abdominal pain, nausea, or vomiting. Objective - Vital Signs Vital signs: Vital Signs Temp 97.9 F 03/06/19 13:00 Pulse 72 03/06/19 13:00 Resp 16 03/06/19 13:00 BP 131/69 03/06/19 13:00 Pulse Ox 94 L 03/06/19 13:00 Intake & Output 03/05/19 03/06/19 03/06/19 18:59 06:59 18:59 Intake Total 540 830 120 Balance 540 830 120 Intake: Oral 540 830 120 Other: Voiding Method Toilet # Voids 1 1 2 # Bowel Movements 1 - Exam General: Non-toxic, in no acute distress, appears stated age, normal weight HEENT: NC/AT, anicteric sclerae, moist conjunctiva, no lid-lag, PERRLA Cardiovascular: S1/S2 wnl, no murmurs, rubs, or gallops Lungs: Clear to auscultation, normal respiratory effort, no accessory muscle use Abdominal: Soft, non-tender, non-distended, no guarding, rebound, or rigidity Skin: Warm, dry Extremities: No edema or contractures Psychiatric: Alert and oriented to person, place and time, appropriate affect Neuro: CN II-XII grossly intact, Strength 5/5 in all 4 extremities, Speech intact, Sensation to light touch grossly intact throughout - Labs CBC & Chem 7: 03/06/19 07:45 03/05/19 07:48 Labs: Abnormal Lab Results - Last 24 Hours (Table) 03/05/19 03/05/19 03/05/19 Range/Units 07:48 07:48 16:50 WBC (3.8-10.6) k/uL Plt Count (150-450) k/uL POC Glucose (mg/dL) 216 H (75-99) mg/dL Hemoglobin A1c 7.0 H (4.0-6.0) % Total Protein (PEP) 5.9 L (6.2-8.2) g/dL 03/05/19 03/06/19 03/06/19 Range/Units 20:16 06:57 07:45 WBC 15.3 H (3.8-10.6) k/uL Plt Count 9 L* (150-450) k/uL POC Glucose (mg/dL) 342 H 254 H (75-99) mg/dL Hemoglobin A1c (4.0-6.0) % Total Protein (PEP) (6.2-8.2) g/dL 03/06/19 Range/Units 11:41 WBC (3.8-10.6) k/uL Plt Count (150-450) k/uL POC Glucose (mg/dL) 262 H (75-99) mg/dL Hemoglobin A1c (4.0-6.0) % Total Protein (PEP) (6.2-8.2) g/dL Assessment and Plan Plan: Severe thrombocytopenia, suspected ITP -Hematology following, recommendations appreciated -Continue with Solu-Medrol -MAIN and RF wnl. Vit B12 levels low normal -Hepatitis and HIV panels negative -Light chains wnl CKD stage III -Monitor BMP, history of requiring hemodialysis twice after ALLERGIC reactions Newly diagnosed diabetes mellitus, A1c 7.0 this visit -We'll increase Levemir 10 units daily at bedtime -Continue with insulin sliding scale Hypertension -Continue with Lasix DVT//GI prophylaxis -IPCDs -No indication for GI prophylaxis Discussed with: Patient Anticipated discharge date: 03/08/[address]: Home A total of 30 minutes was spent on the care of this complex patient more than 5 0% of the time was spent in counseling and care coordination.
[2019-03-06 17:07] LABS: Glucose,Whole Blood 268 mg/dL (75-99)
[2019-03-06 17:08] LABS: Mean Platelet Volume 12.7
[2019-03-06 17:24] LABS: Platelet Count 17 k/uL (150-450)
[2019-03-06] MEDS: LATANOPROST 0.005% OPHTH DROPS 2.5 ML BTL BOTH EYES SCH (20:10)
--- NOTE | 2019-03-06 20:28 | P.PN ---
Subjective Progress Note Date: 03/06/19 The patient denies any new complaints. He is tolerating IV steroids well. He has not noted any new bruising, petechia or purpura. No history of any bleeding from the nose, mouth, or in the stool/urine Objective - Vital Signs Vital signs: Vital Signs Temp 97.9 F 03/06/19 13:00 Pulse 72 03/06/19 13:00 Resp 16 03/06/19 13:00 BP 131/69 03/06/19 13:00 Pulse Ox 94 L 03/06/19 13:00 Intake & Output 03/06/19 03/06/19 03/07/19 06:59 18:59 06:59 Intake Total 830 120 Balance 830 120 Intake: Oral 830 120 Other: Voiding Method Toilet # Voids 1 2 - Constitutional General appearance: Present: no acute distress - EENT Eyes: Present: EOMI ENT: Present: hearing grossly normal, normal oropharynx - Respiratory Respiratory: bilateral: CTA - Cardiovascular Rhythm: regular Heart sounds: normal: S1, S2 - Gastrointestinal General gastrointestinal: Present: normal bowel sounds, soft - Integumentary Integumentary Comment(s): No fresh ecchymosis noted. Petechial rash on bilateral lower extremities fading - Neurologic Neurologic: Present: CNII-XII intact - Musculoskeletal Musculoskeletal: Present: strength equal bilaterally - Psychiatric Psychiatric: Present: A&O x's 3, appropriate affect - Labs CBC & Chem 7: 03/06/19 16:31 03/05/19 07:48 Labs: Abnormal Lab Results - Last 24 Hours (Table) 03/05/19 03/06/19 03/06/19 Range/Units 20:16 06:57 07:45 WBC 15.3 H (3.8-10.6) k/uL Plt Count 9 L* (150-450) k/uL POC Glucose (mg/dL) 342 H 254 H (75-99) mg/dL 03/06/19 03/06/19 03/06/19 Range/Units 11:41 16:31 17:00 WBC (3.8-10.6) k/uL Plt Count 17 L* D (150-450) k/uL POC Glucose (mg/dL) 262 H 268 H (75-99) mg/dL Assessment and Plan (1) Acute ITP Narrative/Plan: The patient's PET counts have not shown a response so far to IV steroids. They are at 9 today. Fortunately does not have any evidence of increased bleeding. Continue IV steroids. As kidney function is normal, and IVIG. Workup for underlying causes so far is negative. Some tests are still pending. 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 The patient has not shown any evidence of a specific autoimmune syndromes so far. He will need to be monitored in the future for the same. It was discussed with the patient that his ITP occurred while he was still on steroids, albeit a low-dose. This somewhat increases the risk that response to steroids may not be optimal, especially when we try to taper him. This makes it more likely that he will require second line therapy. Given his prior history of autoimmune issues, rituximab would be a good option in that case. If platelet counts are stable above 10,000, the patient can be discharged on steroid taper. He will then be set up for outpatient follow-up with additional recommendations (such as second line therapy) to be made depending on his response. Current Visit: Yes Status: Acute Priority: High Code(s): D69.3 - IMMUNE THROMBOCYTOPENIC PURPURA SNOMED Code(s): 96922207 Plan: Defer to the admitting service and other consultants for management of his other medical problems
[2019-03-06 20:36] LABS: Glucose,Whole Blood 204 mg/dL (75-99)
[2019-03-06] MEDS: INSULIN DETEMIR (LEVEMIR) 100 UNIT/ML SYR SQ SCH (21:12)
[2019-03-07] MEDS: methylPREDNISolone SOD SUCCI 125 MG/2 ML VIAL IV SCH ×4 (05:38→23:35)
[2019-03-07] MEDS: POTASSIUM CHLORIDE ER 20 MEQ TAB.ER PO SCH (07:06)
[2019-03-07] MEDS: FUROSEMIDE 20 MG TAB PO SCH ×2 (07:06→21:23)
[2019-03-07] MEDS: BRIMONIDINE TARTRATE 0.2% DROPS 5 ML BTL BOTH EYES SCH ×2 (07:06→21:24)
[2019-03-07] MEDS: PANTOPRAZOLE 40 MG TABLET PO SCH ×2 (07:06→16:54)
[2019-03-07] MEDS: INSULIN ASPART (NovoLOG) 100 UNIT/ML VIAL SQ SCH ×4 (07:07→21:24)
[2019-03-07 07:16] LABS: Glucose,Whole Blood 157 mg/dL (75-99)
[2019-03-07 07:37] LABS: HCT 39.8 % (39.0-53.0); HGB 13.2 gm/dL (13.0-17.5); MCH 31.5 pg (25.0-35.0); MCV 95.3 fL (80.0-100.0); Mean Platelet Volume 12.5; RBC 4.18 m/uL (4.30-5.90); RDW 14.4 % (11.5-15.5); WBC 11.6 k/uL (3.8-10.6)
[2019-03-07 07:46] LABS: Platelet Count 10 k/uL (150-450)
[2019-03-07] MEDS ORDERED: IMMUNE GLOBULIN (GAMMAGARD) 10 GM in EMPTY BAG 1 BAG IV ONE ×2 (09:00→11:00)
[2019-03-07 11:51] LABS: Glucose,Whole Blood 202 mg/dL (75-99)
[2019-03-07] MEDS ORDERED: IMMUNE GLOBULIN (GAMMAGARD) 5 GM in EMPTY BAG 1 BAG IV ONE ×4 (13:00→16:00)
[2019-03-07 15:20] LABS: Albumin 3.63 g/dL (3.80-4.90); Gamma Globulin 0.84 g/dL (0.70-1.50)
[2019-03-07 17:10] LABS: Glucose,Whole Blood 236 mg/dL (75-99)
--- NOTE | 2019-03-07 17:10 | P.PN ---
Subjective Progress Note Date: 03/07/19 Principal diagnosis: Immune thrombocytopenic purpura In follow-up today patient sitting up in bed, denies bleeding, steroid side effects, does have an increased CBG and is wanting to see his incinerator attendant for blood glucose management while he is on steroids, the "rash" that was on his legs is significantly improved, no bleeding, tolerated IVIG infusions well. Objective - Vital Signs Vital signs: Vital Signs Temp 98.0 F 03/07/19 12:45 Pulse 60 03/07/19 12:45 Resp 16 03/07/19 15:51 BP 147/78 03/07/19 12:45 Pulse Ox 92 L 03/07/19 12:45 Intake & Output 03/06/19 03/07/19 03/07/19 18:59 06:59 18:59 Intake Total 120 Balance 120 Intake: Oral 120 Other: Voiding Method Toilet Toilet Toilet # Voids 2 2 4 - Exam Well-developed, well-nourished, male sitting up in bed, no acute distress, alert and oriented 4, is at bedside, petechial rashes noted on the shins of the bilateral lower extremities, some bruising to the forearms and the hands, no other petechial rashes noted, respirations even and unlabored, no swelling - Labs CBC & Chem 7: 03/07/19 06:35 03/05/19 07:48 Labs: Abnormal Lab Results - Last 24 Hours (Table) 03/05/19 03/06/19 03/06/19 Range/Units 07:48 16:31 17:00 WBC (3.8-10.6) k/uL RBC (4.30-5.90) m/uL Plt Count 17 L* D (150-450) k/uL POC Glucose (mg/dL) 268 H (75-99) mg/dL Albumin (PEP) 3.63 L (3.80-4.90) g/dL [id number] 0.57 L (0.60-1.00) g/dL 03/06/19 03/07/19 03/07/19 Range/Units 20:34 06:35 07:00 WBC 11.6 H (3.8-10.6) k/uL RBC 4.18 L (4.30-5.90) m/uL Plt Count 10 L* (150-450) k/uL POC Glucose (mg/dL) 204 H 157 H (75-99) mg/dL Albumin (PEP) (3.80-4.90) g/dL Rewai-3-Oylgeabqy (0.60-1.00) g/dL 03/07/19 Range/Units 11:33 WBC (3.8-10.6) k/uL RBC (4.30-5.90) m/uL Plt Count (150-450) k/uL POC Glucose (mg/dL) 202 H (75-99) mg/dL Albumin (PEP) (3.80-4.90) g/dL Kbzdg-2-Fnqnuutoi (0.60-1.00) g/dL Assessment and Plan (1) Acute ITP Narrative/Plan: Patient on high-dose intravenous steroids. He has received IVIG. His platelet count is 10,000 today. No evidence of bleeding, hemoglobin is stable. CBC daily. No anticoagulants, aspirin, NSAIDs Patient has seen Dr. Isabel in the past for his renal failure, she also managed his hyperglycemia secondary to steroids. Have consulted Dr. Isabel for manageme nt of the same as patient will be on high-dose tapering steroids. Current Visit: Yes Status: Acute Priority: High Code(s): D69.3 - IMMUNE THROMBOCYTOPENIC PURPURA SNOMED Code(s): 30032301
[2019-03-07 17:41] LABS: HCT 40.5 % (39.0-53.0); HGB 13.2 gm/dL (13.0-17.5); MCHC 32.6 g/dL (31.0-37.0); MCV 97.9 fL (80.0-100.0); Mean Platelet Volume 13.8; RBC 4.13 m/uL (4.30-5.90); RDW 13.7 % (11.5-15.5); WBC 12.2 k/uL (3.8-10.6)
[2019-03-07 17:56] LABS: Platelet Count 14 k/uL (150-450)
--- NOTE | 2019-03-07 18:54 | P.PN ---
Subjective Progress Note Date: 03/07/19 The patient was seen and examined at the bedside on 03/07/2019. He was in good spirits and denied any active complaints. He denied noticing any hematuria, epistaxis, hematochezia, hematemesis, melena, or bruising. Objective - Vital Signs Vital signs: Vital Signs Temp 98.0 F 03/07/19 12:45 Pulse 60 03/07/19 12:45 Resp 16 03/07/19 15:51 BP 147/78 03/07/19 12:45 Pulse Ox 92 L 03/07/19 12:45 Intake & Output 03/06/19 03/07/19 03/07/19 18:59 06:59 18:59 Intake Total 120 Balance 120 Intake: Oral 120 Other: Voiding Method Toilet Toilet Toilet # Voids 2 2 4 - Exam General: Non-toxic, in no acute distress, appears stated age, normal weight HEENT: NC/AT, anicteric sclerae, moist conjunctiva, no lid-lag, PERRLA Cardiovascular: S1/S2 wnl, no murmurs, rubs, or gallops Lungs: Clear to auscultation, normal respiratory effort, no accessory muscle use Abdominal: Soft, non-tender, non-distended, no guarding, rebound, or rigidity Skin: Warm, dry Extremities: No edema or contractures Psychiatric: Alert and oriented to person, place and time, appropriate affect Neuro: CN II-XII grossly intact, Strength 5/5 in all 4 extremities, Speech intact, Sensation to light touch grossly intact throughout - Labs CBC & Chem 7: 03/07/19 17:19 03/05/19 07:48 Labs: Abnormal Lab Results - Last 24 Hours (Table) 03/05/19 03/06/19 03/07/19 Range/Units 07:48 20:34 06:35 WBC 11.6 H (3.8-10.6) k/uL RBC 4.18 L (4.30-5.90) m/uL Plt Count 10 L* (150-450) k/uL POC Glucose (mg/dL) 204 H (75-99) mg/dL Albumin (PEP) 3.63 L (3.80-4.90) g/dL Hbvgt-1-Vgpuwybnb 0.57 L (0.60-1.00) g/dL 03/07/19 03/07/19 03/07/19 Range/Units 07:00 11:33 17:09 WBC (3.8-10.6) k/uL RBC (4.30-5.90) m/uL Plt Count (150-450) k/uL POC Glucose (mg/dL) 157 H 202 H 236 H (75-99) mg/dL Albumin (PEP) (3.80-4.90) g/dL Namjk-6-Wskktrxmh (0.60-1.00) g/dL 03/07/19 Range/Units 17:19 WBC 12.2 H (3.8-10.6) k/uL RBC 4.13 L (4.30-5.90) m/uL Plt Count 14 L* (150-450) k/uL POC Glucose (mg/dL) (75-99) mg/dL Albumin (PEP) (3.80-4.90) g/dL Gmqji-9-Iigkzfwve (0.60-1.00) g/dL Assessment and Plan Plan: Severe thrombocytopenia, suspected ITP -Hematology following, recommendations appreciated -Continue with Solu-Medrol. Patient to be discharged on high dose of taper steroids. -MAIN and RF wnl. Vit B12 levels low normal -Hepatitis and HIV panels negative -Light chains wnl CKD stage III -Monitor BMP, history of requiring hemodialysis twice after ALLERGIC reactions -Nephrology consulted Newly diagnosed diabetes mellitus, A1c 7.0 this visit -We'll increase Levemir 10 units daily at bedtime -Continue with insulin sliding scale Hypertension -Continue with Lasix DVT//GI prophylaxis -IPCDs -No indication for GI prophylaxis Discussed with: Patient Anticipated discharge date: 03/08/[address]: Home A total of 30 minutes was spent on the care of this complex patient more than 50% of the time was spent in counseling and care coordination.
[2019-03-07 20:49] LABS: Glucose,Whole Blood 236 mg/dL (75-99)
[2019-03-07] MEDS: LATANOPROST 0.005% OPHTH DROPS 2.5 ML BTL BOTH EYES SCH (21:23)
[2019-03-07] MEDS: INSULIN DETEMIR (LEVEMIR) 100 UNIT/ML SYR SQ SCH (21:24)
[2019-03-08] MEDS: methylPREDNISolone SOD SUCCI 125 MG/2 ML VIAL IV SCH ×2 (05:23→14:20)
[2019-03-08 07:10] LABS: Glucose,Whole Blood 171 mg/dL (75-99)
[2019-03-08 07:44] LABS: HGB 12.9 gm/dL (13.0-17.5); MCH 31.6 pg (25.0-35.0); MCV 95.7 fL (80.0-100.0); RBC 4.07 m/uL (4.30-5.90); RDW 14.3 % (11.5-15.5); WBC 9.6 k/uL (3.8-10.6)
[2019-03-08 07:51] LABS: Platelet Count 14 k/uL (150-450)
[2019-03-08] MEDS: INSULIN ASPART (NovoLOG) 100 UNIT/ML VIAL SQ SCH ×2 (08:54→14:20)
[2019-03-08] MEDS: PANTOPRAZOLE 40 MG TABLET PO SCH (08:54)
[2019-03-08] MEDS: FUROSEMIDE 20 MG TAB PO SCH (08:54)
[2019-03-08] MEDS: POTASSIUM CHLORIDE ER 20 MEQ TAB.ER PO SCH (08:54)
[2019-03-08] MEDS: BRIMONIDINE TARTRATE 0.2% DROPS 5 ML BTL BOTH EYES SCH (08:56)
[2019-03-08 12:38] LABS: Glucose,Whole Blood 213 mg/dL (75-99)
--- NOTE | 2019-03-08 13:56 | P.NPCON ---
History of Present Illness - Reason for Consult Consult date: 03/08/19 acute renal failure - Chief Complaint Refer to the hospital with low platelets. - History of Present Illness Known to Dr. Isabel for chronic kidney disease. He had history of ALLERGIC reactions.. His sodium was in 2013 when he developed severe proteinuria with acute interstitial nephritis from the butter of popcorn. He required dialysis for 2 months. He was treated with steroids and the biopsy showed AIN and FSGS. He recovered renal function and in May 2016 in [place] when he was putting a fish developed similar ALLERGIC reaction developed acute kidney injury requiring dialysis. He is off dialysis since July 2016. He was tapered to 1 mg of prednisone creatinine improved to 1.1 MG per DL. He came to the hospital with thrombocytopenia secondary to ITP. He was treated with steroids and IVIG. No renal function since hospitalization but on admission his creatinine was at baseline. No nausea vomiting diarrhea. No recent contrast studies. No foamy urine or lower extremity swelling. Review of Systems Constitutional: Reports as per HPI Past Medical History Past Medical History: CVA/TIA, Dialysis, Eye Disorder, Hyperlipidemia, Hypertension, Osteoarthritis (OA), Pneumonia, Renal Disease Additional Past Medical History / Comment(s): Pt states he was in [place] 05/23/16 and petted a fish in an aquarium and immediately started with R hand swelling then L hand swelling and then more generalized edema. Other past hs: Dialysis in March 2014- hospitalized for swelling in legs and low urine output- acute kidney injury r/t allery per pt, TIA 2013, pt states he is not HTN- medication is protect kidneys, bilateral glaucoma, migraines in past, slight numbness L foot, OA low back and bilateral knees, bone spurs low back, sinus problems, scarlet fever at age 2yrs. History of Any Multi-Drug Resistant Organisms: None Reported Past Surgical History: Heart Catheterization, Hernia Repair Additional Past Surgical History / Comment(s): Dialysis catheters x3- groin twice then chest-removed April 2014. Kidney biopsy April 2014-neg. Kidney biopsy 06/30/14 for followup-neg. 1997 cardiac cath-clear, 1973 L inguinal hernia repair. Past Anesthesia/Blood Transfusion Reactions: No Reported Reaction Additional Past Anesthesia/Blood Transfusion Reaction / Comment(s): Pt staes he has received blood in past without reaction Past Psychological History: No Psychological Hx Reported Smoking Status: Never smoker Past Alcohol Use History: Rare Past Drug Use History: None Reported - Past Family History Mother Family Medical History: No Reported History Additional Family Medical History / Comment(s): Mother was healthy-she at age 92 1/2. Father Family Medical History: Renal Disease Medications and Allergies Home Medications Medication Instructions Recorded Confirmed Type Latanoprost 1 drop BOTH EYES HS 04/01/14 03/03/19 History Aspirin 81 mg PO HS 06/01/16 03/03/19 History Brimonidine Tartrate [Alphagan P 1 drops BOTH EYES BID 06/01/16 03/03/19 History 0.15% Ophth Soln] Ferrous Sulfate [Iron (65 MG 325 mg PO BID 06/01/16 03/03/19 History Elemental)] Famotidine [Pepcid] 20 mg PO DAILY #30 tab 06/14/16 03/03/19 Rx Ergocalciferol (Vitamin D2) 50,000 unit PO Q28D 03/03/19 03/03/19 History [Drisdol] Furosemide [Lasix] 20 mg PO BID 03/03/19 03/03/19 History Potassium Chloride ER [K-Dur 20] 20 meq PO DAILY 03/03/19 03/03/19 History predniSONE 0 mg PO DIRECTED #126 tab 03/07/19 Rx Allergies Allergy/AdvReac Type Severity Reaction Status Date / Time ARTIFICIAL POPCORN BUTTER Allergy Severe Dyspnea Uncoded 03/03/19 19:31 Sb Redenbacher Popcorn Allergy Severe Dyspnea Uncoded 06/01/16 07:49 Butter Physical Exam Vitals: Vital Signs Temp Pulse Pulse Pulse Resp BP Pulse Ox 03/08/19 08:00 60 64 57 L 16 03/08/19 05:00 97.5 F L 57 L 16 132/67 91 L 03/07/19 21:00 98.1 F 60 120/68 92 L 03/07/19 15:51 16 Intake and Output 03/07/19 03/08/19 03/08/19 22:59 06:59 14:59 Intake Total 590 Balance 590 Intake: Oral 590 Other: Voiding Method Toilet Toilet # Voids 1 2 2 No acute distress S1-S2 heard Lungs clear Trace edema with petechiae Results - Lab Results Most recent lab results Calcium 9.1 mg/dL (8.4-10.2) 03/05/19 07:48 03/08/19 06:15 03/05/19 07:48 Assessment and Plan Assessment: #1 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 Currently creatinine at baseline at 1.0-1.1 MG per DL. 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 Creatinine was at baseline on admission. #2 stable from nephrology point of view for discharge to be followed up for Dr. Isabel as outpatient. #3 Glucotrol is marked the patient's preferred in the past. They can also take metformin based on the kidney function. But because of his ALLERGY reactions and comfortable UTI would leave him on Glucotrol. Stable from nephrology point of view for discharge. Thank you very much for this consultation
[2019-03-08 14:19] VITALS: BP 135/73; PULSE 64; RESP 18; TEMP 98.1
--- NOTE | 2019-03-08 16:47 | P.DS ---
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 Cross presented to the ER at the direction of Dr. Isabel secondary to thrombocytopenia. He has a history of chronic kidney disease stage III and follows with Dr. Isabel, prior CVA, dyslipidemia, and hypertension. In the ER he underwent an extensive evaluation was found have platelet count of 10. He was subsequently admitted for further monitoring and started on steroids. Oncology/hematology was consulted. Working diagnosis was ITP and patient remained on high dose steroids. He initially stated to have a response to IV steroids but this weaned. He was then started on IVIG. It was felt that steroids were less likely to be of benefit as he is chronically on low dose steroids. His platelets at 14. He had no signs of bleeding and his purpura were getting better. Hematology felt confident that he could be discharge if plt stable greater than 10. He was determined stable for discharge. He will start on a high dose prednisone at 1 mg/kg/day with a quick taper as determined appropriate on 03/07. He was also found to have A1C of 7 and was started on glucotrol as this has worked for him in the past. He will follow with Dr. Lewis on 03/19. He will have a repeat CBC in 5 days with results to Dr. Lewis. He will follow with Dr. Isabel in [address] Cross in 2-3 days. Patient seen and examined at bedside.No chest pain, SOB, nausea, vomiting, "rash" getting better Vital signs reviewed and stable. General: non toxic, no distress, appears at stated age Derm: Purpura decreasing on legs and abdomen, resolved on back, warm, dry Head: atraumatic, normocephalic, symmetric Eyes: EOMI, no lid lag, anicteric sclera Mouth: no lip lesion, mucus membranes moist Cardiovascular: S1S2 reg, no murmur, positive posterior tibial pulse bilateral, Lungs: CTA bilateral, no rhonchi, no rales , no accessory muscle use Abdominal: soft, nontender to palpation, no guarding, no appreciable organomegaly Ext: no gross muscle atrophy, no edema, no contractures Neuro: CN II-XI grossly intact, no focal neuro deficits Psych: Alert, oriented, appropriate affect A total of 45 minutes of time were spent preparing this complex discharge summary . Pertinent Studies: ABD ultrasound- no splenomegally, granuloma Patient Condition at Discharge: Stable Plan - Discharge Summary New Discharge Prescriptions: New glipiZIDE [Glucotrol] 5 mg PO AC-BID #60 tab predniSONE 0 mg PO DIRECTED #126 tab Continue Latanoprost 1 drop BOTH EYES HS Ferrous Sulfate [Iron (65 MG Elemental)] 325 mg PO BID Brimonidine Tartrate [Alphagan P 0.15% Ophth Soln] 1 drops BOTH EYES BID Aspirin 81 mg PO HS Famotidine [Pepcid] 20 mg PO DAILY #30 tab Ergocalciferol (Vitamin D2) [Drisdol] 50,000 unit PO Q28D Furosemide [Lasix] 20 mg PO BID Potassium Chloride ER [K-Dur 20] 20 meq PO DAILY Discontinued predniSONE 5 mg PO DAILY Discharge Medication List Latanoprost 1 drop BOTH EYES HS 04/01/14 [History] Aspirin 81 mg PO HS 06/01/16 [History] Brimonidine Tartrate [Alphagan P 0.15% Ophth Soln] 1 drops BOTH EYES BID 06/01/16 [History] Ferrous Sulfate [Iron (65 MG Elemental)] 325 mg PO BID 06/01/16 [History] Famotidine [Pepcid] 20 mg PO DAILY #30 tab 06/14/16 [Rx] Ergocalciferol (Vitamin D2) [Drisdol] 50,000 unit PO Q28D 03/03/19 [History] Furosemide [Lasix] 20 mg PO BID 03/03/19 [History] Potassium Chloride ER [K-Dur 20] 20 meq PO DAILY 03/03/19 [History] glipiZIDE [Glucotrol] 5 mg PO AC-BID #60 tab 03/08/19 [Rx] predniSONE 0 mg PO DIRECTED #126 tab 03/08/19 [Rx] Follow up Appointment(s)/Referral(s): Navin Lewis MD [STAFF PHYSICIAN] - 03/19/19 4:30 pm (attempt to reschedule sunday03/10/19 for an appointment within that week ) Zeynep Isabel MD [STAFF PHYSICIAN] - 2 Weeks Enzo Cross MD [Primary Care Provider] - 1-2 days Ambulatory/Diagnostic Orders: Complete Blood Count w/diff [LAB.AMB] Time Frame: 5 Days, Location: None Selected Patient Instructions/Handouts: Thrombocytopenia (DC) Activity/Diet/Wound Care/Special Instructions: heart healthy diet Activity as tolerated, no ladders, no using knives, no hunting, no contact sports Take blood sugar once daily either before breakfast or 2 hours after dinner. Discharge Disposition: HOME SELF-CARE
[2019-03-08] MEDS ORDERED: glipiZIDE 5 MG TAB PO SCH (17:30)
--- NOTE | 2019-03-09 00:47 | P.PN ---
Subjective Progress Note Date: 03/07/19 The pt denies any new s/s. No oral/nasal/rectal/ bleed noted. No new bruising. He is tolerating PO steroids well Objective - Vital Signs Vital signs: Vital Signs Temp 98.1 F 03/08/19 13:23 Pulse 64 03/08/19 13:23 Resp 18 03/08/19 13:23 BP 135/73 03/08/19 13:23 Pulse Ox 96 03/08/19 13:23 Intake & Output 03/08/19 03/08/19 03/09/19 06:59 18:59 06:59 Intake Total 590 Balance 590 Intake: Oral 590 Other: Voiding Method Toilet # Voids 2 2 - Constitutional General appearance: Present: no acute distress - EENT Eyes: Present: EOMI ENT: Present: hearing grossly normal, normal oropharynx - Respiratory Respiratory: bilateral: CTA - Cardiovascular Rhythm: regular Heart sounds: normal: S1, S2 - Gastrointestinal General gastrointestinal: Present: normal bowel sounds, soft - Integumentary Integumentary: Present: rash (petechial rash- mainly on LE, fading) - Musculoskeletal Musculoskeletal: Present: strength equal bilaterally - Psychiatric Psychiatric: Present: A&O x's 3, appropriate affect - Labs CBC & Chem 7: 03/08/19 06:15 03/05/19 07:48 Labs: Abnormal Lab Results - Last 24 Hours (Table) 03/08/19 03/08/19 03/08/19 Range/Units 06:15 07:08 12:36 RBC 4.07 L (4.30-5.90) m/uL Hgb 12.9 L (13.0-17.5) gm/dL Plt Count 14 L* (150-450) k/uL POC Glucose (mg/dL) 171 H 213 H (75-99) mg/dL Assessment and Plan (1) Acute ITP Narrative/Plan: Plt have shown minimal increase so far, with 17 last pm, but 9 this AM. Thus IVig was added, as renal function was normal. The pt remains asymptomatic, with no evidence of progressive petechia/purpura/ecchymoses - Case d/w IM. Ok to discharge on PO steroids, as long as plt 10 or above. If < 10, can transfuse plt ( more likely to respond as now covered by steroids and IVig) and then discharge. He will be followed closely as an outpt, with BD early next week - Discussed dx, and management in detail with pt, and , who had multiple questions. This included current treatment plan, f/u protocol on d/c, s/s of clinical progression, and options for treatment in case of lack of response to steroids. In that case Rituximab will be preferred, given his h/o auto immune presentations in the past. Logistics and side effects of that regimen discussed Status: Acute Priority: High Code(s): D69.3 - IMMUNE THROMBOCYTOPENIC PURPURA SNOMED Code(s): 74267346 Plan: Defer to the admitting service and other consultants for management of his other medical problems. Nephrology consult is pending
== END 2019-03-08 17:54 | disposition home or self-care (01) | DRG 813 ==
LOC: EC 18:09 → 4MS4W 21:08 → OBSVTOIN 03-04 09:55 → 3NMEDONC 03-05 17:50
PROVIDERS: ADMIT Internal Medicine; ATTEND Internal Medicine
DX: D69.3 Immune thrombocytopenic purpura (principal); E78.5 Hyperlipidemia, unspecified; I12.9 Hypertensive chronic kidney disease with stage 1 through stage 4 chronic kidney disease, or unspecified chronic kidney disease; J44.9 Chronic obstructive pulmonary disease, unspecified; N18.3 Chronic kidney disease, stage 3 (moderate); Z79.4 Long term (current) use of insulin; Z79.52 Long term (current) use of systemic steroids; Z79.82 Long term (current) use of aspirin; Z79.899 Other long term (current) drug therapy; Z91.018 Allergy to other foods; E11.9 Type 2 diabetes mellitus without complications
CPT/HCPCS: 36415; 76705; 80048; 80053; 82607; 82747; 83036; 83883; 83921; 84165; 85025; 85027; 85049; 85610; 85730; 86038; 86334; 86431; 86704; 86706; 86709; 86803; 87340; 87390; 99284

== ENCOUNTER → 2022-07-13 | Outpatient (CLI) | payer MEDICARE ==
--- NOTE | 2022-07-13 15:09 | CT ---
EXAMINATION TYPE: CT brain wo con CT DLP: 1116 mGycm, Automated exposure control for dose reduction was used. DATE OF EXAM: 07/13/2022 2:11 PM COMPARISON: Prior CT Brain from 08/05/2020 . CLINICAL INDICATION:Male, 76 years old with history of R55 syncope, TECHNIQUE: Brain: Multiple axial CT images of the brain were obtained without IV contrast. Coronal and sagittal reformats reviewed. FINDINGS: Brain: Extra-axial spaces: No abnormal extra-axial fluid collections. Ventricular system: Within normal limits Cerebral parenchyma: No acute intraparenchymal hemorrhage or mass effect. The torres-white junction is well differentiated. Scattered hypoattenuating areas are seen within the white matter. Nonspecific calcification within the medial right caudate nucleus head. Cerebellum: Unremarkable. Mass effect: No evidence of midline shift. Intracranial vasculature: Atherosclerotic calcifications of the intracranial vessels. Soft tissues: Normal. Calvarium/osseous structures: No depressed skull fracture. Paranasal sinuses and mastoid air cells: Clear Visualized orbits: Orbital contents are intact. IMPRESSION: 1. No acute intracranial process. 2. Nonspecific white matter changes, likely secondary to chronic small vessel ischemic disease.
== END | disposition home or self-care (01) ==
LOC: RADCTMAIN 13:17
PROVIDERS: ATTEND Psychiatry & Neurology Neurology
DX: R55 Syncope and collapse (principal)
CPT/HCPCS: 70450

== ENCOUNTER → 2022-07-15 | Outpatient (CLI) | payer MEDICARE ==
--- NOTE | 2022-07-15 15:20 | MR ---
EXAMINATION TYPE: MR brain wo/w con DATE OF EXAM: 07/15/2022 COMPARISON: CT head 07/13/2022. HISTORY: Syncope, falls, abnormal CT. TECHNIQUE: Multiplanar, multisequence images of the brain and brainstem is performed without and with IV contras t, utilizing 9 mL intravenous Gadavist . FINDINGS: There is a focus of restricted diffusion within the left frontal lobe measuring up to 7 mm (series 303, image 192). This is consistent with acute/subacute ischemia. Additional region of T2 vernell ne through demonstrated within the posterior right frontal lobe consistent with gliosis from prior is chemic injury (series 303, 24). Abnormal T2/FLAIR signal hyperintensity involving the medial anterior right temporal lobe and posterior inferior right frontal lobe and insula. No significant effacement of the sulci or ventricles. There is no corresponding restricted diffusion. Additional bilateral nolan ventricular and subcortical white matter signal hyperintensities. Enhancing 5 mm lesion along the pos terior aspect of the right frontal lobe just inferior to the anterior horn of the right lateral ventr icle (series 602, image 16). There is no extra-axial fluid collection. The ventricular system and cis ternal spaces are normal in size and appearance. The brain volume is age appropriate. Midline structures demonstrate normal morphology. The craniocervical junction appears within normal limits. The dural venous sinuses appear patent. The globes are intact. Left mastoid effusion. IMPRESSION: 1. Focus of restricted diffusion within the left frontal lobe consistent with acute/subacute ischemi a. 2. Abnormal T2/FLAIR signal hyperintensity involving the medial anterior right temporal lobe and pos terior inferior right frontal lobe and insula. No corresponding restricted diffusion. Etiologies incl ude encephalitis versus less likely subacute to remote infarct. 3. Enhancing 5 mm lesion along the posterior aspect of the right frontal lobe corresponding to CT hy perattenuation. This may represent a cryptic AVM versus petechial hemorrhage versus hypervascular met astasis. 4. Nonspecific white matter changes likely related to chronic small vessel ischemic disease. 5. Remote ischemic injury to the right frontal lobe. 6. Left mastoid effusion. Attempted to call ordering physician without success. Findings called to and discussed with the patient at 3:18 PM with recommendation to go to the ER.
== END | disposition home or self-care (01) ==
LOC: RADMRIMAIN 09:37
PROVIDERS: ATTEND Psychiatry & Neurology Neurology
DX: S06.9X0A Unspecified intracranial injury without loss of consciousness, initial encounter (principal); G93.6 Cerebral edema; G93.9 Disorder of brain, unspecified; R93.89 Abnormal findings on diagnostic imaging of other specified body structures; W19.XXXA Unspecified fall, initial encounter
CPT/HCPCS: 70553; A9585